=== PATIENT | female | born 1970 | race African-American/Black ===

== ENCOUNTER 2018-12-03 07:35 | Emergency (ER) | payer MEDICAID ==
[~2018-12-03] VITALS: Ht 177.8 cm; Wt 73.0 kg
[2018-12-03] MEDS ORDERED: KETOROLAC 60MG/2ML VIAL IM ONE (08:30)
[2018-12-03 08:58] VITALS: BP 121/68
== END 2018-12-03 12:27 | disposition home or self-care (01) ==
LOC: ER 07:43
DX: S82.102A Unspecified fracture of upper end of left tibia, initial encounter for closed fracture (principal); S00.91XA Abrasion of unspecified part of head, initial encounter; I10 Essential (primary) hypertension; V47.0XXA Car driver injured in collision with fixed or stationary object in nontraffic accident, initial encounter; Y93.89 Activity, other specified; Y92.89 Other specified places as the place of occurrence of the external cause; Y99.8 Other external cause status
CPT/HCPCS: 29515; 73560; 73590; 81025; 96372; 99283; J1885